=== PATIENT | female | born 1935 | race Caucasian/White ===

== ENCOUNTER → 2019-12-22 16:10 | Outpatient (CLI) | payer MEDICARE, OTHER, SELFPAY ==
[2016-10-29 11:27] VITALS: BMI 20.5
[2019-12-22 16:26] LABS: Bacteria 0 SEEN /hpf (None Seen); Mucous, Urine 0 SEEN /hpf (<or=2+); Red Blood Cells-Urine 0 SEEN /hpf (0-5); Squamous Epithelial Cells - UA 0 SEEN /hpf (5-10); White Blood Cells 0 SEEN /hpf (0-5)
[2019-12-22 16:51] LABS: Color, Urine Yellow (Yellow); Glucose, Dipstick Normal (Normal); Ketone-Dipstick 50 mg/dl (Negative); Leukocyte Esterase-Dipstick Negative /ul (Negative); Nitrite-Dipstick Negative (Negative); Occult Blood-Urine 10 /ul (Negative); Protein-Dipstick Negative (Negative); Urine Bilirubin Dipstick Negative (Negative); Urine Clarity Clear (Clear); Urine Urobilinogen Normal (Normal)
== END ==
PROVIDERS: PCP Student in an Organized Health Care Education/Training Program; Referring Provider Student in an Organized Health Care Education/Training Program; Visit Provider Student in an Organized Health Care Education/Training Program
DX: N39.0 Urinary tract infection, site not specified (principal)
CPT/HCPCS: 81001

== ENCOUNTER 2020-02-23 23:44 | Emergency (ER) | payer MEDICARE, OTHER, SELFPAY ==
--- NOTE | 2020-02-23 23:48 | EKG12_ITS ---
Test Reason : UNRESPONSIVE Blood Pressure : / mmHG Vent. Rate : 047 BPM Atrial Rate : 047 BPM P-R Int : 166 ms QRS Dur : 112 ms QT Int : 450 ms P-R-T Axes : 091 021 062 degrees QTc Int : 398 ms Sinus bradycardia with sinus arrhythmia Incomplete right bundle branch block T wave abnormality, consider anterior ischemia Abnormal ECG Confirmed by BARBARA YU, KUSHAL ([id number]), metropolitan editor DANILO CARTAGENA ([id number]) on 02/27/2020 1:30:25 PM Referred By: JORGE Confirmed By:GERMAIN JIMENEZ MD
--- NOTE | 2020-02-23 23:51 | CT_ITS ---
STUDY: CT BRAIN WITHOUT CONTRAST REASON FOR EXAM: Female, 84 years old. UNRESPONSIVE RADIATION DOSAGE (If Supplied By Facility): CTDIvol = ( 44.99 ) mGy, DLP = ( 762.36 ) mGycm TECHNIQUE: Transaxial CT imaging of the brain was performed without administration of intravenous contrast material. Individualized dose optimization techniques were used for this CT. COMPARISON: No relevant priors. FINDINGS: Normal soft tissue structures. Normal calvarium. There is a right frontal and temporal subdural hematoma, measuring approximately 7 mm in thickness. There are multifocal parenchymal hemorrhages in the right temporal, parietal, occipital, and frontal lobes, possibly representing hemorrhagic contusions. There is mass effect upon the right lateral ventricle with 1.4 cm [id number] midline shift. There is effacement of the quadrigeminal plate cistern and there is right uncal herniation There is some prominence of the left lateral ventricle which may be due to central atrophy or may represent ventricular trapping. There are areas of decreased attenuation within the white matter tracts of the supratentorial brain, consistent with microvascular disease changes. Normal basal ganglia and thalami. Normal brainstem. Normal cerebellum. There is atherosclerotic calcification of the cavernous carotid arteries. There are no findings of an acute ischemic infarction. There is mild mucoperiosteal thickening in right maxillary and bilateral ethmoid sinuses, consistent with mild chronic sinusitis. There is no evidence for acute sinusitis. CT/Brain/Head without Contrast IMPRESSION: Large multifocal parenchymal hemorrhages in the right cerebral hemisphere. 7 mm thick subdural hematoma overlying the right convexity. Mass effect on the right lateral ventricle with a 1.4 cm right to left midline shift and right uncal herniation. Mild prominence of the left lateral ventricle may represent early ventricular trapping. N.B. : The above information has been verbally conveyed by Anand Mon MD to Shivani Sandra MD, on 02/24/2020 00:25:20 (ET). Electronically Signed: Anand Mon MD at 0:29 EDT , Service support ,
[2020-02-23 23:52] VITALS: BP 166/73; PULSE 58; RESP 23; TEMP 36.6; O2SAT 98; BMI 20.7
[2020-02-24] MEDS: Ondansetron 4 MG/2 ML Vial IV (00:22)
--- NOTE | 2020-02-24 00:34 | ED.RN ---
THIS RN SPOKE WITH HOUSTON EDMONDS AT THE [facility]. THIS RN UPDATED ON PT TERMINAL CONDITION AND SHE VERBALIZES UNDERSTANDING THAT WE ARE WAITING ON INFORMATION FOR ADMISSION TO HOSPICE
[2020-02-24 02:54] VITALS: BP 181/70; PULSE 60; RESP 26; O2SAT 96
--- NOTE | 2020-02-24 02:54 | ED.RN ---
PER REQUEST OF DR LIVINGSTON, CALLED [place] [employer] TO CONTACT DAUGHTER AFTER SEVERAL FAILED ATTEMPTS TO CONTACT BY PHONE.
--- NOTE | 2020-02-24 02:56 | PCM.HP.STD ---
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) Hypertension (Chronic) Chronic venous insufficiency (Chronic) Venous stasis dermatitis of right lower extremity (Chronic) Pain of right leg (Chronic) Hypercholesteremia (Chronic) Venous insufficiency of right leg (Chronic) Swelling of right lower extremity (Chronic) Allergies bacitracin [From Neosporin ([id number])] Adverse Reaction (Verified 02/24/20 00:01) Unknown neomycin [From Neosporin ([id number])] Adverse Reaction (Verified 02/24/20 00:01) Unknown nickel Adverse Reaction (Verified 02/24/20 00:01) Rash polymyxin B [From Neosporin ([id number])] Adverse Reaction (Verified 02/24/20 00:01) Unknown Home Medications: Ambulatory Orders Medication Instructions Recorded Docusate Sodium [Colace] 100 mg PO DAILY #20 capsule 10/29/16 Hydrocodone/Acetaminophen [Hycet 5 - 10 ml PO Q6H PRN PRN #100 ml 10/29/16 7.5 mg-325 mg/15 ml Soln] Surgical History: cholecystectomy - Laparoscopic Smoking Status: Unknown if ever smoked - *Family History Maternal History Items: - - The patient's mother at age of 90 from natural causes. Paternal History Items: - - The patient's father at age of 58 from a myocardial infarction. - Physical Exam Vitals/I&O's: Vital Signs Temp Pulse Resp BP Pulse Ox 97.9 F 60 26 H 181/70 H 96 02/23/20 23:52 02/24/20 02:54 02/24/20 02:54 02/24/20 02:54 02/24/20 02:54 Oxygen Delivery Method Room Air Weight: 54.9 kg Body Mass Index (BMI) 20.7 Assessment/Plan All Active Problems Scalded skin syndrome (Acute) Fungal infection (Acute) Cellulitis (Acute)
[2020-02-24 03:00] VITALS: BP 172/76; PULSE 60; RESP 24; O2SAT 95
--- NOTE | 2020-02-24 03:04 | ED.DCSUM_ITS ---
- ER Visit Summary Date of Service: 02/24/20 Chief Complaint: Unresponsive History of Present Illness: The patient is a [address] Seth. She was last known well at 7:45 PM. Staff at the detention report that at 1020 she was vomiting and had left-sided weakness. This that she was incontinent of urine. Upon EMS arrival the patient was unresponsive. I am unable to obtain any history from the patient as she is unresponsive on arrival to the emergency department. Patient does have DNR Comfort Care arrest paperwork and what was sent from the detention. Physical Examination: Vitals: Stable. Afebrile. General: Well-nourished and well-developed. Head: Normocephalic small contusion to the left upper forehead. Neck: Supple, no lymphadenopathy. No JVD. Cardiovascular: Regular rate and rhythm. 2 out of 6 systolic murmur. Respiratory: No respiratory distress. Clear to auscultation bilaterally. Abdominal: Soft,nondistended, normal bowel sounds. Extremities: No edema. Skin: Normal color, no rash. Neurologic: Unresponsive, does not withdraw to pain. Test Results: Clinical Impression(s) from Imaging Studies Brain CT 02/23/20 23:51 IMPRESSION: Large multifocal parenchymal hemorrhages in the right cerebral hemisphere. 7 mm thick subdural hematoma overlying the right convexity. Mass effect on the right lateral ventricle with a 1.4 cm right to left midline shift and right uncal herniation. Mild prominence of the left lateral ventricle may represent early ventricular trapping. N.B. : The above information has been verbally conveyed by Anand Mon MD to Shivani Sandra MD, on 02/24/2020 00:25:20 (ET). Electronically Signed: Anand Mon MD at 0:29 EDT , Service support , ADDENDUM: 02/24/20 0036 IMPRESSION: Large multifocal parenchymal hemorrhages in the right cerebral hemisphere. 7 mm thick subdural hematoma overlying the right convexity. Mass effect on the right lateral ventricle with a 1.4 cm right to left midline shift and right uncal herniation. Mild prominence of the left lateral ventricle may represent early ventricular trapping. N.B. : The above information has been verbally conveyed by Anand Mon MD to Shivani Sandra MD, on 02/24/2020 00:25:20 (ET). Electronically Signed: Anand Mon MD at 0:29 EDT , Service support , Emergency Department Course and Treatment: Upon arrival to the emergency department the patient was taken immediately to CT. The CT shows a large intracranial hemorrhage and she is already herniating. This is nonsurvivable. I attempted to call her daughter and left a message. I discussed the patient with hospice. Without family here to sign the paperwork she cannot become a hospice patient. Patient was observed over the course of 3 hours in the emergency department. She was given Zofran and she began to vomit. Treatment Plan: Patient was discussed with Dr. Martines. She will be admitted to the hospital. We also contacted police to try to reach her family as is imminent. The police went out to the address of the patient's daughter. The house is vacant. Prior to admission to the hospital the patient's daughter called and was informed of her condition. She has presented to the emergency department and would like the patient to be made hospice. Disposition: To hospice in critical condition. Impression: 1. Right cerebral parenchymal hemorrhage. 2. Right subdural hemorrhage. 3. Uncal herniation. 4. DNR comfort care only. 5. Critical care time 33 minutes. This note was generated with [employer] dictation software. It may contain incorrect words, spelling, and punctuation that were not noted in review of the chart prior to signing ED Disposition - Plan for ED Patient: Instructions: Starting Hospice Referrals: Jerome Seth DO [Primary Care Provider] -
[2020-02-24 03:14] VITALS: BP 161/87; PULSE 66; RESP 26; TEMP 36.1; O2SAT 96
--- NOTE | 2020-02-24 03:26 | ED.RN ---
THIS RN UPDATED HOUSTON AT THE [facility] THAT THE PT WOULD BE ADMITTED TO MED SURG 3. SHE VERBALIZES UNDERSTANDING.
[2020-02-24 04:00] VITALS: BP 174/72; PULSE 67; RESP 28; O2SAT 96
[2020-02-24 05:00] VITALS: BP 156/111; PULSE 59; RESP 26; O2SAT 89
[2020-02-24 05:54] VITALS: BP 166/101; RESP 26; O2SAT 91
== END 2020-02-24 05:54 | disposition home or self-care (01) ==
LOC: ED 02-24 00:05 → MS3 02-24 03:37
PROVIDERS: Emergency Provider Emergency Medicine; PCP Student in an Organized Health Care Education/Training Program; Visit Provider Hospitalist
DX: I62.00 Nontraumatic subdural hemorrhage, unspecified (principal); I61.9 Nontraumatic intracerebral hemorrhage, unspecified; G81.91 Hemiplegia, unspecified affecting right dominant side; G93.5 Compression of brain; R01.1 Cardiac murmur, unspecified; Z66 Do not resuscitate; K58.9 Irritable bowel syndrome, unspecified; F03.90 Unspecified dementia, unspecified severity, without behavioral disturbance, psychotic disturbance, mood disturbance, and anxiety
CPT/HCPCS: 70450; 93005; 96374; 99285; A4216; J2405